=== PATIENT | male | born 1985 | race Caucasian/White ===

== ENCOUNTER 2020-03-13 05:56 | Emergency (ER) | payer BC, OTHER ==
[~2020-03-13] VITALS: Ht 177.8 cm; Wt 90.7 kg
[2020-03-13 06:36] VITALS: BP 156/105
[2020-03-13 06:40] LABS: Urine Bacteria NONE SEEN /hpf (None Seen); Urine Blood Negative /uL (Negative); Urine Hyaline Cast FEW /lpf (0 - 2); Urine Specific Gravity 1.013 (1.001-1.035); Urine Sperm PRESENT /hpf (None Seen); Urine WBC 1 /hpf (0 - 3)
[2020-03-13 06:43] LABS: Basophils # (auto) 0.1 10 ^3/uL (0-0.2); Basophils % (auto) 0.9 % (0.0-2.0); Eosinophils # (auto) 0.1 10 ^3/uL (0-0.8); Eosinophils % (auto) 1.6 % (0.0-7.0); Hemoglobin 16.7 g/dL (13.5-17.5); Lymphocytes # (auto) 1.3 10 ^3/uL (0.4-5.4); Lymphocytes % (auto) 17.3 % (10.0-50.0); Mean Corpuscular Hemoglobin 30.5 pg (28.0-32.0); Mean Corpuscular Hgb Conc. 34.7 g/dL (32.0-36.0); Mean Corpuscular Volume 87.9 fL (80.0-100.0); Monocytes # (auto) 0.6 10 ^3/uL (0-1.3); Monocytes % (auto) 7.7 % (0.0-12.0); Neutrophils # (auto) 5.6 10 ^3/uL (1.6-8.6); Neutrophils % (auto) 72.5 % (37.0-80.0); Nucleated Red Blood Cells % 0.2 %; Platelet Count (auto) 248 10^3/uL (140-450); Red Blood Cells 5.46 10^6/uL (4.5-5.90); Red Cell Distribution Width 13.7 % (11.8-14.3); White Blood Cell 7.8 10^3/uL (4.4-10.8)
[2020-03-13] MEDS ORDERED: predniSONE 20 MG TAB PO ONE (07:00)
[2020-03-13] MEDS ORDERED: LORazepam 0.5 MG TAB PO ONE (07:00)
[2020-03-13 07:04] LABS: Potassium 3.4 mmol/L (3.5-5.1)
[2020-03-13 07:11] LABS: BUN/Creatinine Ratio 10.4; Bilirubin, Total 0.5 mg/dL (0.2-1.0); Calcium 7.6 mg/dL (8.5-10.1); Total Protein 7.8 g/dL (6.4-8.2)
[2020-03-13] MEDS ORDERED: ALBUTEROL SULF HFA 90MCG INH 200DOSE IN SCH (14:00)
== END 2020-03-13 08:32 | disposition home or self-care (01) ==
LOC: EDBD 05:56 → ER 05:56
DX: F41.9 Anxiety disorder, unspecified (principal); J45.909 Unspecified asthma, uncomplicated
CPT/HCPCS: 36415; 70450; 71045; 80053; 81001; 85025; 93005; 99285; J7512